=== PATIENT | female | born 1945 | race Caucasian/White ===

== ENCOUNTER 2017-07-05 08:24 | Day surgery (SDC) | payer OTHER | END 2017-07-05 13:05 | disposition home or self-care (01) | LOC: AMB-ENDOS 08:24 | DX: C20 Malignant neoplasm of rectum (principal) ==

== ENCOUNTER 2018-08-15 07:22 | Day surgery (SDC) | payer OTHER | END 2018-08-15 12:30 | disposition home or self-care (01) | LOC: AMB-ENDOS 07:22 | DX: C20 Malignant neoplasm of rectum (principal) ==